=== PATIENT | female | born 1945 ===

== ENCOUNTER 2024-06-20 04:31 | Day surgery (SDC) | payer OTHER ==
[2024-06-14 10:04] VITALS: BP 150/81
[~2024-06-20] VITALS: Ht 154.9 cm; Wt 44.5 kg
[~2024-06-20 04:31] MED LIST: ANIMAL CHEWS1 EACH PO; LEVOTHYROXINE13 MCG; MELOXICAM15 MG PO; OMEGA-31000 MG PO; ZOCOR20 MG PO
[2024-06-20] MEDS ORDERED: CEFAZOLIN SODIUM 1,000 MG VIAL ONE (09:34)
[2024-06-20] MEDS ORDERED: LIDOCAINE HCL 1% 20 ML VIAL IJ ONE (09:43)
== END 2024-06-20 13:00 | disposition home or self-care (01) ==
LOC: CIR.AMB 04:31
PROVIDERS: ATTEND Surgery Surgery of the Hand
DX: D21.12 Benign neoplasm of connective and other soft tissue of left upper limb, including shoulder (principal); E03.8 Other specified hypothyroidism; J45.909 Unspecified asthma, uncomplicated